=== PATIENT | male | born 1930 | race Caucasian/White ===

== ENCOUNTER 2017-08-22 12:17 | Day surgery (SDC) | payer MEDICARE, BC ==
[2017-08-22] VITALS (9 sets, daily range): BP systolic 146–164; BP diastolic 75–92
[~2017-08-22 12:17] MED LIST: ASPI-920 PO; ATOR20TA PO; CHOL400T57 PO; CLOP75TA35 PO; FLAX100032 PO; FOLI0.4T2 PO; GABA-330 PO; LOSA50TA3 PO; PSYL0.5210 PO; SODI650T29 PO; SYN0.0125T PO; VITC500T PO
[2017-08-22] MEDS ORDERED: ATOR10TA PO (12:45)
[2017-08-22] MEDS ORDERED: CHOL200012 PO (12:45)
[2017-08-22] MEDS ORDERED: RANI300T7 PO (12:46)
[2017-08-22] MEDS ORDERED: DOCU-261 PO (12:46)
[2017-08-22] MEDS ORDERED: MULT-1172 PO (12:48)
[2017-08-22] MEDS ORDERED: MIDAZolam 5mg/5ml vial ONE (13:12)
[2017-08-22] MEDS ORDERED: fentaNYL/PF 50MCG/1 ML 2ML syringe ONE (13:12)
[2017-08-22] MEDS ORDERED: diphenhydrAMINE 50 mg/ml inj ONE (13:12)
[2017-08-22] MEDS ORDERED: LIDOcaine Viscous 15ml cup ONE (13:13)
[2017-08-22] MEDS ORDERED: glucagon, human recombinant 1mg kit ONE ×2 (13:13)
[2017-08-22] MEDS ORDERED: levoFLOXACIN-Levaquin 500mg/D5 100 ML IV ONE (13:13)
[2017-08-22] MEDS ORDERED: iohexol 300 MG/1 ML 50ml polymer ONE (13:13)
== END 2017-08-22 16:07 | disposition home or self-care (01) ==
LOC: GI LAB 12:17
PROVIDERS: ATTEND Internal Medicine Gastroenterology
DX: K83.1 Obstruction of bile duct (principal); E78.5 Hyperlipidemia, unspecified; K21.9 Gastro-esophageal reflux disease without esophagitis; E03.9 Hypothyroidism, unspecified; I10 Essential (primary) hypertension; Z98.41 Cataract extraction status, right eye; Z88.5 Allergy status to narcotic agent; Z98.42 Cataract extraction status, left eye; Z85.46 Personal history of malignant neoplasm of prostate; Z90.79 Acquired absence of other genital organ(s); Z87.891 Personal history of nicotine dependence; Z79.82 Long term (current) use of aspirin; Z79.899 Other long term (current) drug therapy; Z98.890 Other specified postprocedural states
CPT/HCPCS: 43264; 43274; 74328; 99153; C1729; G0500; J1610; J1956; J2250; J3010; J7030; Q9967; 43276; A4620; J1200

== ENCOUNTER 2017-09-12 08:39 | Outpatient (CLI) | payer MEDICARE, BC ==
[~2017-09-12] VITALS: Ht 170.2 cm; Wt 85.3 kg
[~2017-09-12 08:39] MED LIST changes: +ATOR10TA PO; -ATOR20TA PO; +CHOL200012 PO; -CHOL400T57 PO; +DOCU-261 PO; -FLAX100032 PO; -LOSA50TA3 PO; +MULT-1172 PO; -PSYL0.5210 PO; +RANI300T7 PO
[2017-09-12 09:20] LABS: TOTAL HEMOGLOBIN 14.1 G/dl (14.0-18.0)
[2017-09-12] MEDS ORDERED: albuterol 2.5 MG/3 ML nebule NEB ONE (09:55)
== END 2017-09-12 23:59 | disposition home or self-care (01) ==
LOC: RT 08:39
PROVIDERS: ATTEND Internal Medicine
DX: R06.02 Shortness of breath (principal); I10 Essential (primary) hypertension; Z87.891 Personal history of nicotine dependence
CPT/HCPCS: 85018; 94010; 94727; 94729

== ENCOUNTER 2017-09-20 15:05 | Emergency (ER) | payer MEDICARE, BC ==
[~2017-09-20] VITALS: Ht 177.8 cm; Wt 81.6 kg
[2017-09-20 15:48] VITALS: BP 141/84
== END 2017-09-20 16:14 | disposition home or self-care (01) ==
LOC: ER 15:05
DX: S00.03XA Contusion of scalp, initial encounter (principal); I10 Essential (primary) hypertension; E03.9 Hypothyroidism, unspecified; I48.91 Unspecified atrial fibrillation; Z85.9 Personal history of malignant neoplasm, unspecified; Z98.890 Other specified postprocedural states; Z79.82 Long term (current) use of aspirin; Z79.899 Other long term (current) drug therapy; W01.0XXA Fall on same level from slipping, tripping and stumbling without subsequent striking against object, initial encounter; Y93.89 Activity, other specified; Y92.89 Other specified places as the place of occurrence of the external cause; Y99.8 Other external cause status
CPT/HCPCS: 70450; 99284

== ENCOUNTER 2017-10-10 12:45 | Day surgery (SDC) | payer MEDICARE, BC ==
[~2017-10-10] VITALS: Ht 175.3 cm; Wt 83.2 kg
[2017-10-10] VITALS (8 sets, daily range): BP systolic 120–196; BP diastolic 69–96
[2017-10-10] MEDS ORDERED: fentaNYL/PF 50MCG/1 ML 2ML syringe ONE (13:48)
[2017-10-10] MEDS ORDERED: meperidine/PF 100mg/ml syringe ONE (13:48)
[2017-10-10] MEDS ORDERED: glucagon, human recombinant 1mg kit ONE (13:49)
[2017-10-10] MEDS ORDERED: diphenhydrAMINE 50 mg/ml inj ONE (13:49)
[2017-10-10] MEDS ORDERED: iohexol 300 MG/1 ML 50ml polymer ONE (13:49)
[2017-10-10] MEDS ORDERED: MIDAZolam 5mg/5ml vial ONE (13:49)
[2017-10-10] MEDS ORDERED: LIDOcaine Viscous 15ml cup ONE (13:49)
== END 2017-10-10 16:55 | disposition home or self-care (01) ==
LOC: GI LAB 12:45
PROVIDERS: ATTEND Internal Medicine Gastroenterology
DX: Z46.59 Encounter for fitting and adjustment of other gastrointestinal appliance and device (principal); K83.1 Obstruction of bile duct; I10 Essential (primary) hypertension; E78.5 Hyperlipidemia, unspecified; K21.9 Gastro-esophageal reflux disease without esophagitis; E03.9 Hypothyroidism, unspecified; I48.91 Unspecified atrial fibrillation; Z87.891 Personal history of nicotine dependence; Z85.46 Personal history of malignant neoplasm of prostate; Z98.41 Cataract extraction status, right eye; Z98.42 Cataract extraction status, left eye; Z90.79 Acquired absence of other genital organ(s); Z86.73 Personal history of transient ischemic attack (TIA), and cerebral infarction without residual deficits; Z79.82 Long term (current) use of aspirin; Z79.891 Long term (current) use of opiate analgesic; Z98.890 Other specified postprocedural states; Z79.899 Other long term (current) drug therapy
CPT/HCPCS: 43261; 43276; 99153; G0500; J1610; J2250; J3010; J7030; Q9967; 88108; 88305; J1200; J2175

== ENCOUNTER 2017-12-14 18:04 | Inpatient (IN) | payer MEDICARE, BC ==
[~2017-12-14] VITALS: Ht 175.3 cm; Wt 82.7 kg
[2017-12-14] MEDS ORDERED: PSYL0.4C2 (18:21)
[2017-12-14] MEDS ORDERED: CALC-1197 PO (18:21)
[2017-12-14] MEDS ORDERED: CLOP75TA15 PO (18:21)
[2017-12-14] MEDS ORDERED: OMEG-42 PO (18:21)
[2017-12-14] MEDS ORDERED: acetaminophen 325mg tablet PO STA (18:32)
[2017-12-14 18:57] LABS: CLARITY,URINE CLEAR (Clear); COLOR,URINE YELLOW (Yellow); GLUCOSE, URINE NEGATIVE (Neg); KETONES,URINE NEGATIVE (Neg); LEUKOCYTE ESTERASE ,URINE NEGATIVE (Neg); NITRITES, URINE NEGATIVE (Neg); OCCULT BLOOD,URINE NEGATIVE (Neg); PROTEIN,URINE NEGATIVE (Neg); UROBILINOGEN,URINE 0.2 E.U/dL (0.2-1.0)
[2017-12-14 18:58] LABS: UA COLLECTION TYPE VOIDED
[2017-12-14 19:03] LABS: BASOPHILS % (AUTO) 0.3 % (0-1); EOSINOPHILS % (AUTO) 0.9 % (0-6); HEMATOCRIT 34.5 % (42.0-52.0); HEMOGLOBIN 11.9 g/dl (14.0-17.9); LYMPHOCYTES # (AUTO) 0.5 X10'3 (1.1-4.8); LYMPHOCYTES % (AUTO) 10.8 % (21-51); MEAN CORPUSCULAR HEMOGLOBIN 32.3 PG (27.0-31.0); MEAN CORPUSCULAR HGB CONC 34.4 % (33.0-36.5); MEAN CORPUSCULAR VOLUME 93.9 FL (78-98); MEAN PLATELET VOLUME 8.1 FL (7.4-10.4); MONOCYTES # (AUTO) 0.6 X10'3 (0-0.9); NEUTROPHILS # (AUTO) 3.8 X10'3 (1.8-7.7); PLATELET COUNT 179 X10'3 (140-440); RED BLOOD COUNT 3.68 X10'6 (4.70-6.10); RED CELL DISTRIBUTION WIDTH 14.8 % (11.5-14.5)
[2017-12-14 19:15] LABS: PARTIAL THROMBOPLASTIN TIME 27 SECONDS (22-32); PROTHROMBIN TIME 10.3 SECONDS (9.0-12.0)
[2017-12-14 19:18] LABS: ALANINE AMINOTRANSFERASE 24 U/L (12-78); ALBUMIN 3.1 G/DL (3.4-5.0); ALBUMIN/GLOBULIN RATIO 0.8 (1.1-1.5); ALKALINE PHOSPHATASE 81 IU/L (46-116); ANION GAP 10 (8-16); ASPARTATE AMINO TRANSFERASE 29 U/L (10-37); BILIRUBIN,TOTAL 0.5 MG/DL (0.1-1.0); BLOOD UREA NITROGEN 26 MG/DL (7-18); BUN/CREATININE RATIO 21.8 (5.4-32.0); CALCIUM 8.2 MG/DL (8.5-10.1); CHLORIDE 103 MMOL/L (99-107); CREATININE 1.19 MG/DL (0.60-1.10); GLUCOSE 92 MG/DL (70-104); MAGNESIUM 1.8 MG/DL (1.5-2.4); POTASSIUM 4.1 MMOL/L (3.5-5.1); SODIUM 138 MMOL/L (135-145); TOTAL CARBON DIOXIDE 24.8 MMOL/L (24-32); TOTAL PROTEIN 7.1 G/DL (6.4-8.2); eGFR 58 ML/MIN
[2017-12-14] MEDS ORDERED: prednisoLONE 15mg/5ml oral solution 5ml cup PO STA (19:50)
[2017-12-14] MEDS ORDERED: normal saline 1000ml 1,000 ML IV ONE ×3 (20:00→20:05)
[2017-12-14] MEDS ORDERED: piperacillin/tazo 3.375gm/50ml 50 ML IV ONE (20:05)
[2017-12-14] MEDS ORDERED: temazepam 15mg capsule PO PRN (21:00)
[2017-12-14] MEDS ORDERED: HYDROcodone/acetaminophen 5mg/325mg tablet PO PRN (21:40)
[2017-12-14] MEDS ORDERED: magnesium hydroxide 30ml (MOM) UD suspension PO PRN (21:40)
[2017-12-14] MEDS ORDERED: diphenhydrAMINE 25mg capsule PO PRN (21:40)
[2017-12-14] MEDS ORDERED: acetaminophen 650mg rectal suppository RC PRN (21:40)
[2017-12-14] MEDS ORDERED: acetaminophen 325mg tablet PO PRN ×2 (21:40)
[2017-12-14] MEDS ORDERED: mag hydrox/Alum hydrox/simeth 30ml oral suspension PO PRN (21:40)
[2017-12-14] MEDS ORDERED: bisacodyl 10mg suppository rectal RC PRN (21:40)
[2017-12-14] MEDS ORDERED: morphine 2 MG/ML inj. syringe IV PRN ×2 (21:40)
[2017-12-14] MEDS ORDERED: diphenhydrAMINE 50 mg/ml inj IV PRN (21:40)
[2017-12-14] MEDS ORDERED: HYDROmorphone 1 mg/ml syringe IV PRN ×2 (21:40)
[2017-12-14] MEDS ORDERED: ondansetron/PF 4mg/2ml inj IV PRN (21:40)
[2017-12-14] MEDS ORDERED: metoclopramide 5 mg/ml inj IV PRN (21:40)
[2017-12-14] MEDS ORDERED: HYDROcodone/acetaminophen 10/325mg tab PO PRN (21:40)
[2017-12-14] MEDS: pantoprazole 40 MG vial IV SCH (22:03)
[2017-12-14] MEDS: normal saline 1000ml 1,000 ML IV SCH ×2 (22:03→22:58)
[2017-12-14 22:08] LABS: AMYLASE 102 U/L (25-115); LIPASE 584 U/L (73-393); TROPONIN I < 0.04 NG/ML (0.0-0.05)
[2017-12-14 22:30] LABS: ABG BASE EXCESS -3.4 mmol/L (-2.0-3.0); ABG HCO3 21.2 mmol/L (22.0-26.0); ABG PCO2 (T) 36.6 mmHg (35.0-48.0); ABG PH (T) 7.381 (7.350-7.450); ABG PO2 (T) 74.7 mmHg (83-108); ALLEN'S TEST Positive; FCOHb 0.2 % (0.5-1.5); FMetHb 0.3 % (0.3-1.12); FO2Hb 93.5 % (94-100); TOTAL HEMOGLOBIN 10.9 G/dl (14.0-18.0)
[2017-12-14 22:30] LABS: HEMOGLOBIN A1C 5.2 % (4.5-6.2)
[2017-12-14 22:41] VITALS: BP 120/61
[2017-12-15 07:00] VITALS: BP 135/58
[2017-12-15 07:29] LABS: BASOPHILS % (AUTO) 0.3 % (0-1); EOSINOPHILS # (AUTO) 0.1 X10'3 (0-0.9); EOSINOPHILS % (AUTO) 1.2 % (0-6); HEMATOCRIT 32.5 % (42.0-52.0); HEMOGLOBIN 11.2 g/dl (14.0-17.9); LYMPHOCYTES # (AUTO) 0.6 X10'3 (1.1-4.8); LYMPHOCYTES % (AUTO) 12.2 % (21-51); MEAN CORPUSCULAR HEMOGLOBIN 32.2 PG (27.0-31.0); MEAN CORPUSCULAR HGB CONC 34.3 % (33.0-36.5); MEAN CORPUSCULAR VOLUME 93.8 FL (78-98); MEAN PLATELET VOLUME 7.9 FL (7.4-10.4); MONOCYTES # (AUTO) 0.6 X10'3 (0-0.9); MONOCYTES % (AUTO) 14.1 % (2-12); NEUTROPHILS # (AUTO) 3.3 X10'3 (1.8-7.7); NEUTROPHILS % (AUTO) 72.2 % (42-75); PLATELET COUNT 151 X10'3 (140-440); RED BLOOD COUNT 3.47 X10'6 (4.70-6.10); RED CELL DISTRIBUTION WIDTH 14.9 % (11.5-14.5); WHITE BLOOD COUNT 4.6 X10'3 (4.5-11.0)
[2017-12-15] MEDS: clopidogrel 75mg tablet PO SCH (08:00)
[2017-12-15] MEDS ORDERED: clopidogrel 75mg tablet PO SCH (08:00)
[2017-12-15] MEDS: piperacillin/tazo 4.5gm/100ml 100 ML IV SCH ×2 (08:02→21:09)
[2017-12-15] MEDS: pantoprazole 40 MG vial IV SCH (08:03)
[2017-12-15] MEDS: docusate sod 100mg capsule PO SCH ×2 (08:03→21:10)
[2017-12-15] MEDS: levoTHYROXINE 125mcg tablet PO SCH (08:03)
[2017-12-15] MEDS: gabapentin 400mg capsule PO SCH ×3 (08:03→21:10)
[2017-12-15 08:05] LABS: ALANINE AMINOTRANSFERASE 25 U/L (12-78); ALBUMIN 2.7 G/DL (3.4-5.0); ALBUMIN/GLOBULIN RATIO 0.8 (1.1-1.5); ALKALINE PHOSPHATASE 64 IU/L (46-116); ANION GAP 9 (8-16); ASPARTATE AMINO TRANSFERASE 24 U/L (10-37); BILIRUBIN,TOTAL 0.8 MG/DL (0.1-1.0); BLOOD UREA NITROGEN 20 MG/DL (7-18); BUN/CREATININE RATIO 17.2 (5.4-32.0); CALCIUM 7.8 MG/DL (8.5-10.1); CHLORIDE 107 MMOL/L (99-107); CHOL/HDL RATIO 2.3 (0.00-4.99); CHOLESTEROL 77 MG/DL (0-200); CREATININE 1.16 MG/DL (0.60-1.10); GLUCOSE 88 MG/DL (70-104); HDL CHOLESTEROL 34 MG/DL (35-60); LDL CHOLESTEROL 40 MG/DL (50-100); POTASSIUM 3.9 MMOL/L (3.5-5.1); SODIUM 140 MMOL/L (135-145); TOTAL CARBON DIOXIDE 23.8 MMOL/L (24-32); TOTAL PROTEIN 6.3 G/DL (6.4-8.2); TRIGLYCERIDES 37 MG/DL (20-135); eGFR 59 ML/MIN
[2017-12-15] MEDS: normal saline 1000ml 1,000 ML IV SCH ×2 (08:11→21:10)
[2017-12-15 11:00] VITALS: BP 121/61
[2017-12-15 20:00] VITALS: BP 122/57
[2017-12-15] MEDS ORDERED: non-formulary drug (Aspirin (Aspirin Chewable) 81 MG) PO SCH (21:00)
[2017-12-15] MEDS: aspirin 81mg tab.chew PO SCH ×2 (21:00→21:10)
[2017-12-15] MEDS: atorvastatin 10mg tablet PO SCH (21:10)
[2017-12-16] VITALS: BP 106/56
[2017-12-16] MEDS: normal saline 1000ml 1,000 ML IV SCH ×2 (05:13→16:51)
[2017-12-16 06:22] LABS: BASOPHILS % (AUTO) 0.2 % (0-1); HEMATOCRIT 29.2 % (42.0-52.0); HEMOGLOBIN 10.2 g/dl (14.0-17.9); LYMPHOCYTES # (AUTO) 0.5 X10'3 (1.1-4.8); LYMPHOCYTES % (AUTO) 14.7 % (21-51); MEAN CORPUSCULAR HEMOGLOBIN 32.8 PG (27.0-31.0); MEAN CORPUSCULAR HGB CONC 34.9 % (33.0-36.5); MEAN PLATELET VOLUME 8.2 FL (7.4-10.4); MONOCYTES # (AUTO) 0.5 X10'3 (0-0.9); MONOCYTES % (AUTO) 13.9 % (2-12); NEUTROPHILS # (AUTO) 2.5 X10'3 (1.8-7.7); NEUTROPHILS % (AUTO) 70.2 % (42-75); PLATELET COUNT 129 X10'3 (140-440); RED CELL DISTRIBUTION WIDTH 14.4 % (11.5-14.5); WHITE BLOOD COUNT 3.6 X10'3 (4.5-11.0)
[2017-12-16 06:31] LABS: ALANINE AMINOTRANSFERASE 74 U/L (12-78); ALBUMIN 2.3 G/DL (3.4-5.0); ALBUMIN/GLOBULIN RATIO 0.7 (1.1-1.5); ALKALINE PHOSPHATASE 150 IU/L (46-116); ANION GAP 7 (8-16); ASPARTATE AMINO TRANSFERASE 104 U/L (10-37); BILIRUBIN,TOTAL 1.4 MG/DL (0.1-1.0); BLOOD UREA NITROGEN 18 MG/DL (7-18); BUN/CREATININE RATIO 14.8 (5.4-32.0); CALCIUM 7.7 MG/DL (8.5-10.1); CHLORIDE 106 MMOL/L (99-107); CREATININE 1.22 MG/DL (0.60-1.10); GLUCOSE 76 MG/DL (70-104); POTASSIUM 3.6 MMOL/L (3.5-5.1); SODIUM 137 MMOL/L (135-145); TOTAL CARBON DIOXIDE 23.7 MMOL/L (24-32); TOTAL PROTEIN 5.7 G/DL (6.4-8.2); eGFR 56 ML/MIN
[2017-12-16 08:00] VITALS: BP 147/70
[2017-12-16] MEDS: clopidogrel 75mg tablet PO SCH (08:00)
[2017-12-16] MEDS: docusate sod 100mg capsule PO SCH ×2 (08:41→20:04)
[2017-12-16] MEDS: gabapentin 400mg capsule PO SCH ×3 (08:41→20:04)
[2017-12-16] MEDS: pantoprazole 40 MG vial IV SCH (08:42)
[2017-12-16] MEDS: piperacillin/tazo 4.5gm/100ml 100 ML IV SCH ×2 (08:42→20:04)
[2017-12-16] MEDS: levoTHYROXINE 125mcg tablet PO SCH (08:42)
[2017-12-16 08:47] LABS: TRIIODOTHYRONINE (T3) 88 ng/dL (71-180)
[2017-12-16 12:02] VITALS: BP 125/83
[2017-12-16 15:41] LABS: LIPASE 284 U/L (73-393)
[2017-12-16 18:00] VITALS: BP 151/75
[2017-12-16] MEDS: atorvastatin 10mg tablet PO SCH (20:04)
[2017-12-16] MEDS: aspirin 81mg tab.chew PO SCH (20:04)
[2017-12-16 23:00] VITALS: BP 81/51
[2017-12-16] MEDS ORDERED: normal saline 1000ml 1,000 ML IV ONE (23:10)
[2017-12-17] VITALS (20 sets, daily range): BP systolic 92–169; BP diastolic 48–89
[2017-12-17] MEDS: normal saline 1000ml 1,000 ML IV SCH ×3 (03:39→22:56)
[2017-12-17 05:59] LABS: HEMATOCRIT 28.7 % (42.0-52.0); HEMOGLOBIN 9.9 g/dl (14.0-17.9); MEAN CORPUSCULAR HEMOGLOBIN 32.3 PG (27.0-31.0); MEAN CORPUSCULAR HGB CONC 34.5 % (33.0-36.5); MEAN CORPUSCULAR VOLUME 93.7 FL (78-98); MEAN PLATELET VOLUME 8.3 FL (7.4-10.4); PLATELET COUNT 121 X10'3 (140-440); RED BLOOD COUNT 3.06 X10'6 (4.70-6.10); RED CELL DISTRIBUTION WIDTH 14.8 % (11.5-14.5); WHITE BLOOD COUNT 2.6 X10'3 (4.5-11.0)
[2017-12-17 06:45] LABS: PLATELET ESTIMATE DECREASED; TOTAL CELLS COUNTED 100
[2017-12-17 06:46] LABS: LARGE PLATELETS FEW
[2017-12-17 06:50] LABS: ALANINE AMINOTRANSFERASE 49 U/L (12-78); ALBUMIN 2.1 G/DL (3.4-5.0); ALBUMIN/GLOBULIN RATIO 0.7 (1.1-1.5); ALKALINE PHOSPHATASE 130 IU/L (46-116); ANION GAP 10 (8-16); ASPARTATE AMINO TRANSFERASE 50 U/L (10-37); BILIRUBIN,TOTAL 0.7 MG/DL (0.1-1.0); BLOOD UREA NITROGEN 17 MG/DL (7-18); BUN/CREATININE RATIO 12.7 (5.4-32.0); CALCIUM 7.2 MG/DL (8.5-10.1); CHLORIDE 109 MMOL/L (99-107); CREATININE 1.34 MG/DL (0.60-1.10); GLUCOSE 86 MG/DL (70-104); POTASSIUM 3.6 MMOL/L (3.5-5.1); SODIUM 142 MMOL/L (135-145); TOTAL CARBON DIOXIDE 23.3 MMOL/L (24-32); TOTAL PROTEIN 5.3 G/DL (6.4-8.2); eGFR 50 ML/MIN
[2017-12-17 07:32] LABS: % IRON SATURATION 17 % (11-46); IRON 24 UG/DL (53-167); TOTAL IRON BINDING CAPACITY 145 UG/DL (259-388)
[2017-12-17] MEDS: gabapentin 400mg capsule PO SCH ×3 (07:51→19:36)
[2017-12-17] MEDS: docusate sod 100mg capsule PO SCH ×2 (07:51→19:36)
[2017-12-17] MEDS: levoTHYROXINE 125mcg tablet PO SCH (07:51)
[2017-12-17] MEDS: clopidogrel 75mg tablet PO SCH ×2 (07:51→07:59)
[2017-12-17] MEDS: piperacillin/tazo 4.5gm/100ml 100 ML IV SCH ×2 (07:51→19:36)
[2017-12-17] MEDS: pantoprazole 40 MG vial IV SCH (07:51)
[2017-12-17] MEDS: aspirin 81mg tab.chew PO SCH (19:35)
[2017-12-17] MEDS: atorvastatin 10mg tablet PO SCH (19:36)
[2017-12-18 04:07] VITALS: BP 164/74
[2017-12-18] MEDS: normal saline 1000ml 1,000 ML IV SCH ×2 (05:40→08:11)
[2017-12-18 05:43] LABS: BASOPHILS % (AUTO) 0.3 % (0-1); EOSINOPHILS # (AUTO) 0.1 X10'3 (0-0.9); EOSINOPHILS % (AUTO) 2.7 % (0-6); HEMATOCRIT 34.9 % (42.0-52.0); LYMPHOCYTES # (AUTO) 0.8 X10'3 (1.1-4.8); LYMPHOCYTES % (AUTO) 23.3 % (21-51); MEAN CORPUSCULAR HEMOGLOBIN 32.7 PG (27.0-31.0); MEAN CORPUSCULAR HGB CONC 34.4 % (33.0-36.5); MEAN PLATELET VOLUME 8.2 FL (7.4-10.4); MONOCYTES # (AUTO) 0.4 X10'3 (0-0.9); MONOCYTES % (AUTO) 10.2 % (2-12); NEUTROPHILS # (AUTO) 2.3 X10'3 (1.8-7.7); NEUTROPHILS % (AUTO) 63.5 % (42-75); PLATELET COUNT 125 X10'3 (140-440); RED BLOOD COUNT 3.67 X10'6 (4.70-6.10); RED CELL DISTRIBUTION WIDTH 14.8 % (11.5-14.5); WHITE BLOOD COUNT 3.6 X10'3 (4.5-11.0)
[2017-12-18 05:55] LABS: ALANINE AMINOTRANSFERASE 52 U/L (12-78); ALBUMIN 2.3 G/DL (3.4-5.0); ALBUMIN/GLOBULIN RATIO 0.6 (1.1-1.5); ALKALINE PHOSPHATASE 142 IU/L (46-116); ANION GAP 9 (8-16); ASPARTATE AMINO TRANSFERASE 50 U/L (10-37); BILIRUBIN,TOTAL 0.6 MG/DL (0.1-1.0); BLOOD UREA NITROGEN 11 MG/DL (7-18); CALCIUM 7.6 MG/DL (8.5-10.1); CHLORIDE 107 MMOL/L (99-107); GLUCOSE 82 MG/DL (70-104); POTASSIUM 3.5 MMOL/L (3.5-5.1); SODIUM 141 MMOL/L (135-145); TOTAL CARBON DIOXIDE 25.3 MMOL/L (24-32); eGFR 63 ML/MIN
[2017-12-18] MEDS ORDERED: pantoprazole 40mg Tablet.DR PO SCH (07:30)
[2017-12-18 08:00] VITALS: BP 176/80
[2017-12-18] MEDS: docusate sod 100mg capsule PO SCH (08:09)
[2017-12-18] MEDS: gabapentin 400mg capsule PO SCH (08:10)
[2017-12-18] MEDS: levoTHYROXINE 125mcg tablet PO SCH (08:10)
[2017-12-18] MEDS: clopidogrel 75mg tablet PO SCH (08:10)
[2017-12-18] MEDS: piperacillin/tazo 4.5gm/100ml 100 ML IV SCH (08:11)
[2017-12-18 11:35] VITALS: BP 146/76
[2017-12-18] MEDS ORDERED: LEVO500T2 PO (12:28)
== END 2017-12-18 13:41 | disposition home or self-care (01) | DRG 871 ==
LOC: ER 18:04 → ED HOLD 21:40 → SUR 3N 22:30
PROVIDERS: ADMIT Family Medicine; ATTEND Internal Medicine
PROC: 0FPB8DZ Removal of Intraluminal Device from Hepatobiliary Duct, Via Natural or Artificial Opening Endoscopic (ICD-10-PCS; principal; 2017-12-17)
PROC: 0F798DZ Dilation of Common Bile Duct with Intraluminal Device, Via Natural or Artificial Opening Endoscopic (ICD-10-PCS; 2017-12-17)
DX: A41.9 Sepsis, unspecified organism (principal); K85.90 Acute pancreatitis without necrosis or infection, unspecified; N17.9 Acute kidney failure, unspecified; E86.1 Hypovolemia; R09.02 Hypoxemia; D64.9 Anemia, unspecified; I48.91 Unspecified atrial fibrillation; K86.89 Other specified diseases of pancreas; R74.8 Abnormal levels of other serum enzymes; K83.8 Other specified diseases of biliary tract; I95.9 Hypotension, unspecified; E03.9 Hypothyroidism, unspecified; I25.10 Atherosclerotic heart disease of native coronary artery without angina pectoris; I10 Essential (primary) hypertension; Z46.59 Encounter for fitting and adjustment of other gastrointestinal appliance and device; Z79.899 Other long term (current) drug therapy; Z79.82 Long term (current) use of aspirin; Z85.07 Personal history of malignant neoplasm of pancreas; Z87.891 Personal history of nicotine dependence
CPT/HCPCS: 36415; 36600; 43276; 71045; 71250; 74176; 80053; 80061; 81003; 82150; 82803; 83036; 83540; 83550; 83605; 83690; 83735; 83880; 84100; 84145; 84439; 84443; 84479; 84480; 84484; 85018; 85025; 85610; 85730; 87040; 87070; 93005; 99285; A4620; C9113; G0500; J1610; J2250; J2543; J3010; J7030; J7510; Q9967